=== PATIENT | female | born 1980 | race Caucasian/White ===

== ENCOUNTER 2016-08-05 06:37 | Inpatient (IN) | payer BC ==
[~2016-08-05] VITALS: Ht 177.8 cm; Wt 150.0 kg
--- NOTE | ~2016-08-05 | OR ---
PATIENT'S NAME: ÁLVARO [facility] AGE: 35 Y [address] ROOM: [place] [id number] LOCATION: GOBS ADMIT DATE: 08/05/2016 OR/Procedure Report DISCHARGE DATE: 08/08/2016 FAMILY PHYSICIAN: Jolene Rodriguez APRN ATTENDING PHYSICIAN: Sujey Morgan SURGEON: Sujey Morgan MD HISTORY TEACHER: DATE OF PROCEDURE: 08/06/2016 PREOPERATIVE DIAGNOSES: 1. Intrauterine at 40 weeks. 2. Social induction of labor. 3. Morbid obesity. 4. Inability to deliver vertex. POSTOPERATIVE DIAGNOSES: 1. Intrauterine at 40 weeks. 2. Social induction of labor. 3. Morbid obesity. 4. Inability to deliver vertex. PROCEDURE: Outlet vacuum-assisted vaginal delivery. ESTIMATED BLOOD LOSS: 300 mL. ANESTHESIA: Epidural. FINDINGS: Male infant, score 8 and 9, weight was 7 pounds 6 ounces. Intact placenta, 3-vessel cord. Second-degree perineal laceration. INDICATIONS: This patient is a 35-year-old, 1, para 0, female. She was admitted for social induction of labor. Her father is currently extremely ill in the ICU and there is a chance that he may not make it until she had her baby, so we decided to induce her. The patient also has a history of malignant melanoma, which has been well treated, and she has not had any recent positive scans. The patient was unfavorable at the start of the induction; therefore, she received Prostin Gel for 2 doses and followed by Pitocin. She took a long time to get into active labor until the following morning, but when she hit active labor phase, she actually progressed faster than normal to complete. She was having some heart rate decelerations, which were late in nature toward the last hour of her labor, but she was progressing very quickly and there was still moderate variability, so we decided to continue to watch her closely. She was then complete and the heart rate actually looked significantly better, and throughout her pushing, the heart rate looked good until the last couple of contractions where it went PATIENT'S NAME: ÁLVARO [facility] AGE: 35 Y [address] ROOM: [place] [id number] LOCATION: [facility] ADMIT DATE: 08/05/2016 OR/Procedure Report DISCHARGE DATE: 08/08/2016 FAMILY PHYSICIAN: Jolene Rodriguez APRN ATTENDING PHYSICIAN: Sujey Morgan down to the 60s for about 6 minutes and she was having trouble delivering the vertex, and therefore the decision was made for outlet vacuum-assisted vaginal delivery. The bladder had just been emptied with removal of Urban catheter. Anesthesia was deemed to be adequate. Baby was JANEEN. Estimated weight was 3500 g, and consent had been given by the parents. The patient had actually only pushed herself for about 30 minutes, but she was very tired and having trouble getting the last bit of the fetus delivered. DESCRIPTION OF PROCEDURE: The mushroom cup vacuum was chosen, it was placed at the point of maximum flexion. A maximum of 40 cmHg were used. Steady downward pull followed by steady upward pull was used and the baby delivered with 1 pull and expulsive effort. The vacuum was disengaged and the rest of the fetus delivered. The nose and mouth were bulb suctioned. The cord was clamped and cut. The was handed to awaiting team. Cord pH and cord blood were drawn. The placenta delivered with manual traction. Cervix, vagina, and perineum were examined. There was a second-degree perineal laceration noted and repaired in standard fashion. There were abrasions inside the vagina and one was bleeding on the left side, which required a couple of interrupted [id number] sutures. COMPLICATIONS: None. CONDITION: Mom stable in room. Infant went to the Nursery. MD YEHUDA CONTEH/modl /[id number] d: 08/11/16 0949 t: 08/18/16 1117, OPERATIVE SUMMARY
[~2016-08-05 06:37] MED LIST: PRENATAL 1+1)(P1 TAB PO
[2016-08-05 07:22] LABS: BASOPHIL % 0.3 %; EOSINOPHIL # 0.1 K/uL (0.0-0.5); HEMATOCRIT 40.1 % (33.0-46.0); IMMATURE GRANULOCYTE % 0.5 %; LYMPHOCYTE # 2.1 K/uL (0.8-4.0); LYMPHOCYTE % 24.8 %; MCH 28.4 pg (27.0-34.0); MCHC 32.4 gm/dL (32.0-36.5); MCV 87.7 fl (83.0-98.0); MONOCYTE # 0.7 K/uL (0.0-1.0); MONOCYTE % 7.7 %; NEUTROPHIL # (ANC) 5.6 K/uL (1.8-7.8); NEUTROPHIL % 65.7 %; NRBC % 0 /100WBC (0-0.00); PLATELET COUNT 243 K/uL (150-450); RBC 4.57 M/uL (3.50-5.50); RDW-CV 13.5 % (11.9-14.6); WBC 8.6 K/uL (4.0-11.0)
[2016-08-05] MEDS ORDERED: ZANTAC (NON-FO150 MG PO (07:53)
[2016-08-07 03:46] LABS: BASOPHIL % 0.3 %; EOSINOPHIL # 0.1 K/uL (0.0-0.5); HEMATOCRIT 33.5 % (33.0-46.0); HEMOGLOBIN 10.9 g/dL (11.0-15.0); IMMATURE GRANULOCYTE % 0.3 %; LYMPHOCYTE # 3.1 K/uL (0.8-4.0); MCH 28.8 pg (27.0-34.0); MCHC 32.5 gm/dL (32.0-36.5); MCV 88.6 fl (83.0-98.0); MONOCYTE % 8.6 %; MPV 9.9 fl (9.4-12.4); NEUTROPHIL # (ANC) 7.2 K/uL (1.8-7.8); NEUTROPHIL % 62.8 %; NRBC % 0 /100WBC (0-0.00); PLATELET COUNT 208 K/uL (150-450); RBC 3.78 M/uL (3.50-5.50); RDW-CV 13.4 % (11.9-14.6); WBC 11.5 K/uL (4.0-11.0)
--- NOTE | 2016-08-07 04:57 | NUR ---
VSS, up ad tereza, last had percocet at 2049, home tomorrow
--- NOTE | 2016-08-07 07:31 | NUR ---
1934-1934 I supervised the [employer] student nurse providing patient cares.
--- NOTE | 2016-08-07 16:37 | NUR ---
135/74 70 97.7 FUNDUS FIRM, EVEN, SMALL FLOW, TOOK MULUEGTA GUZMAN THIS AFTER NOON, WAYNE GARZA @ 1315, RHOGAM GIVEN.
--- NOTE | 2016-08-08 05:04 | NUR ---
vss, fundus firm, at the umbilicus, small flow. 2 percocet given at 0029. rhogam given yesterday. plans home today. late afternoon.
[2016-08-08] MEDS ORDERED: SURFAK240 MG PO (12:07)
[2016-08-08] MEDS ORDERED: MOTRIN800 MG PO (12:08)
[2016-08-08] MEDS ORDERED: Norco 5/325 PO (12:09)
== END 2016-08-08 17:00 | disposition disaster alternative care site (69) | DRG 775 ==
LOC: GOBS 06:37 → EDSTATUS 08-06 06:36 → GOBM 08-06 11:31 → GOBS 08-08 17:00
PROVIDERS: ADMIT Obstetrics & Gynecology
PROC: 10D07Z6 Extraction of Products of Conception, Vacuum, Via Natural or Artificial Opening (ICD-10-PCS; principal; 2016-08-06)
PROC: 0KQM0ZZ Repair Perineum Muscle, Open Approach (ICD-10-PCS; 2016-08-06)
PROC: 3E033VJ Introduction of Other Hormone into Peripheral Vein, Percutaneous Approach (ICD-10-PCS; 2016-08-06)
DX: O99.89 Other specified diseases and conditions complicating pregnancy, childbirth and the puerperium (principal); E66.01 Morbid (severe) obesity due to excess calories; O76 Abnormality in fetal heart rate and rhythm complicating labor and delivery; Z3A.39 39 weeks gestation of pregnancy; Z37.0 Single live birth; Z85.820 Personal history of malignant melanoma of skin; O99.214 Obesity complicating childbirth; O70.1 Second degree perineal laceration during delivery
CPT/HCPCS: J2590; J2791; J3010; J7120